=== PATIENT | female | born 1960 | race African-American/Black ===

== ENCOUNTER 2019-11-05 12:35 | Emergency (ER) | payer MEDICAID ==
[~2019-11-05] VITALS: Ht 165.1 cm; Wt 75.0 kg
[2019-11-05] MEDS ORDERED: IPRATROPIUM/ALBUTEROL 0.5-3(2.5)MG/3ML NEB HHN ONE (13:15)
[2019-11-05] MEDS ORDERED: PREDNISONE 20MG TABLET PO STA (13:23)
[2019-11-05] MEDS ORDERED: ALBUTEROL 6.7GM HFA INHALER ORI ONE (15:15)
[2019-11-05 15:21] VITALS: BP 102/61
== END 2019-11-05 15:23 | disposition home or self-care (01) ==
LOC: ER 13:10
DX: J45.901 Unspecified asthma with (acute) exacerbation (principal); R41.82 Altered mental status, unspecified; R10.9 Unspecified abdominal pain; R46.2 Strange and inexplicable behavior; I10 Essential (primary) hypertension
CPT/HCPCS: 71045; 93005; 99283; J7512; Z7610

== ENCOUNTER 2020-03-08 10:54 | Emergency (ER) | payer MEDICAID ==
[~2020-03-08] VITALS: Ht 165.1 cm; Wt 75.0 kg
[2020-03-08] MEDS ORDERED: HYDROCODONE/ACETAMINOPHEN 5/325MG TABLET PO ONE (11:15)
[2020-03-08] MEDS ORDERED: KETOROLAC 60MG/2ML VIAL IM ONE (11:15)
[2020-03-08 12:35] VITALS: BP 130/78
== END 2020-03-08 12:36 | disposition home or self-care (01) ==
LOC: ER 10:54
DX: M25.552 Pain in left hip (principal); M19.90 Unspecified osteoarthritis, unspecified site; I10 Essential (primary) hypertension; J45.909 Unspecified asthma, uncomplicated; Z88.0 Allergy status to penicillin
CPT/HCPCS: 96372; 99283; J1885

== ENCOUNTER 2020-03-29 12:45 | Emergency (ER) | payer MEDICAID ==
[~2020-03-29] VITALS: Ht 170.2 cm; Wt 64.0 kg
[2020-03-29] MEDS ORDERED: NITROGLYCERIN 0.4MG TABLET SL SL PRN (13:30)
[2020-03-29] MEDS ORDERED: ASPIRIN 81MG TABLET PO ONE (13:30)
[2020-03-29 14:15] LABS: BASOPHILS % 0.8 % (0.0-2.0); EOSINOPHILS % 3.9 % (0.0-5.0); HEMATOCRIT. 39.1 % (36.0-48.0); HEMOGLOBIN. 13.1 g/dL (12.0-16.0); LYMPHOCYTES % 24.2 % (20.0-50.0); MEAN CORPUSCULAR VOLUME 98.7 fL (81.0-99.0); MEAN PLATELET VOLUME 9.5 fl (7.4-10.4); MONOCYTES % 6.7 % (2.0-8.0); NEUTROPHILS % 64.4 % (40.0-76.0); PLATELET 200 x1000/uL (130-400); RED BLOOD CELL COUNT 3.96 mill/uL (4.2-5.4); RED CELL DISTRIBUTION WIDTH 14.1 % (11.6-14.6)
[2020-03-29 14:21] LABS: CHLORIDE 110 mEq/L (98-107)
[2020-03-29 14:25] LABS: D-DIMER 0.51 mg/L FEU (<0.50); PARTIAL THROMBOPLASTIN TIME 28.8 sec (23.4-31.0); PROTHROMBIN TIME 10.5 sec (9.6-11.0)
[2020-03-29 15:00] VITALS: BP 148/72
== END 2020-03-29 17:35 | disposition left against medical advice (07) ==
LOC: ER 12:58 → EDBEDREQ 15:40 → EDBEDREQTM 15:40 → ER 17:35 → ENRESERV 19:32 → CANRESERV 19:32 → CANBEDREQ 23:39
DX: R07.89 Other chest pain (principal); I10 Essential (primary) hypertension; J45.909 Unspecified asthma, uncomplicated
CPT/HCPCS: 36415; 71045; 80053; 83880; 84484; 85025; 85379; 85610; 85730; 93005; 99285; Z7610

== ENCOUNTER 2020-06-17 09:00 | Emergency (ER) | payer MEDICAID ==
[~2020-06-17] VITALS: Ht 162.6 cm; Wt 68.0 kg
[2020-06-17] MEDS ORDERED: KETOROLAC 30MG/ML VIAL IM ONE (09:15)
[2020-06-17] MEDS ORDERED: HYDROCODONE/ACETAMINOPHEN 5/325MG TABLET PO ONE (13:15)
[2020-06-17 13:32] VITALS: BP 170/90
== END 2020-06-17 13:37 | disposition home or self-care (01) ==
LOC: ER 09:00
DX: M54.9 Dorsalgia, unspecified (principal); J45.909 Unspecified asthma, uncomplicated; I10 Essential (primary) hypertension; Z88.0 Allergy status to penicillin
CPT/HCPCS: 71101; 93005; 96372; 99283; J1885